=== PATIENT | male | born 1990 | race Caucasian/White ===

== ENCOUNTER 2018-06-10 10:02 | Emergency (ER) | payer SELFPAY ==
[2018-06-10 10:15] VITALS: BP 140/89
[2018-06-10] MEDS: PROPARACAINE HCL 0.5% OPTH OP ONE (10:23)
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
== END 2018-06-10 10:35 | disposition home or self-care (01) ==
LOC: ED 10:02
DX: S05.92XA Unspecified injury of left eye and orbit, initial encounter (principal); H57.8 Other specified disorders of eye and adnexa; W22.8XXA Striking against or struck by other objects, initial encounter; Y92.9 Unspecified place or not applicable; Y93.9 Activity, unspecified; Y99.9 Unspecified external cause status
CPT/HCPCS: 99283; A9270-GY

== ENCOUNTER 2018-09-23 19:52 | Emergency (ER) | payer OTHER ==
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
[2018-09-23 20:58] VITALS: BP 133/90
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
== END 2018-09-23 20:55 | disposition home or self-care (01) ==
LOC: ED 19:52
DX: Z04.1 Encounter for examination and observation following transport accident (principal); M25.531 Pain in right wrist; V89.2XXA Person injured in unspecified motor-vehicle accident, traffic, initial encounter; Y93.89 Activity, other specified; Y92.410 Unspecified street and highway as the place of occurrence of the external cause; Y99.0 Civilian activity done for income or pay
CPT/HCPCS: 73110; 99282; 99283